=== PATIENT | female | born 1960 | race Hispanic/Latino ===

== ENCOUNTER 2016-11-02 10:58 | Outpatient (CLI) | payer BC ==
--- NOTE | 2016-11-02 14:03 | RAD ---
CERVICAL SPINE HISTORY: Neck pain. Muscle spasm. TECHNIQUE: Five views obtained. FINDINGS: There are moderate degenerative changes in the mid and lower cervical spine, with loss of disk heigh t noted at C5-C6 and C6-C7. Prominent osteophytes are seen at C5-C6 and C6-C7, and posterior spondy litic changes are also noted at these levels. There is straightening of the lordotic curvature. Al ignment appears maintained. IMPRESSION: Moderate degenerative changes at C5-C6 and C6-C7 noted. There is foraminal encroachment at these le vels due to uncinate hypertrophy, as seen on the oblique views. POS: MARY
== END 2016-11-02 10:59 | disposition home or self-care (01) ==
LOC: NAV RAD 10:58
PROVIDERS: ATTEND Internal Medicine
DX: M62.830 Muscle spasm of back (principal); M47.812 Spondylosis without myelopathy or radiculopathy, cervical region
CPT/HCPCS: 72050

== ENCOUNTER 2016-11-20 09:01 | Outpatient (CLI) | payer BC ==
[2016-11-20 12:27] LABS: Blood, Urine Negative (Negative); Clarity Cloudy (Clear); Glucose, Urine (Dipstick) Negative (Negative); Leukocyte Negative (Negative); Nitrite Negative (Negative); Protein, Urine (Dipstick) 30 mg/dL (Neg-Trace); pH, Urine 5.5 (5.0-9.0)
[2016-11-20 12:44] LABS: ALT (SGPT) 50 U/L (8-55); AST (SGOT) 32 U/L (5-34); Albumin 4.3 g/dL (3.5-5.0); Alkaline Phosphatase 116 U/L (40-150); Anion Gap 17 mmol/L (10-20); BUN (Urea Nitrogen) 12 mg/dL (9.8-20.1); Bilirubin, Total 0.5 mg/dL (0.2-1.2); Calc. Creatinine Clearance 0 mL/min (70-130); Calcium 9.7 mg/dL (7.8-10.44); Carbon Dioxide 20 mmol/L (22-29); Cardiac Risk 4.4 (Less than 4.5); Chloride 109 mmol/L (98-107); Cholesterol 210 mg/dl (< 200 Desired); Estimated GFR-MDRD 62; Globulin 2.9 g/dL (2.4-3.5); Glucose 117 mg/dL (70-105); HDL Cholesterol 48 mg/dL (>60 Neg Risk); LDL Cholesterol, Calculated 122 mg/dL; Potassium 4.3 mmol/L (3.5-5.1); Protein, Total 7.2 g/dL (6.0-8.3); Sodium 142 mmol/L (136-145); Triglycerides 200 mg/dL (Less than 150)
[2016-11-20 12:57] LABS: Bilirubin Negative (Negative); Icto Negative (Negative); Specific Gravity, Urine 1.031 (1.002-1.036)
[2016-11-20 12:58] LABS: Bacteria/HPF Rare-Few HPF (None Seen); Crystals/HPF 3+ AMORPH URATES HPF (Negative); RBC/HPF None Seen HPF (0-3); Squamous Epithelial 0-3 HPF (0-3); WBC/HPF 0-3 HPF (0-3)
[2016-11-20 13:12] LABS: #Basophils 0.1 thou/uL (0.0-0.2); #Eosinphils 0.2 thou/uL (0.0-0.7); #Lymphocytes 2.5 thou/uL (1.20-3.40); #Monocytes 0.5 thou/uL (0.11-0.59); #Neutrophils 6.6 thou/uL (1.40-6.50); %Eosinophils 1.8 % (0.0-10.0); %Lymphocytes 25.1 % (21.0-51.0); %Monocytes 5.4 % (0.0-10.0); %Neutrophils 66.7 % (42.0-75.0); Hemoglobin 14.5 g/dL (12.0-16.0); MDiff Complete? YES; Mean Corpuscular HGB CONC 31.9 g/dL (32.0-36.0); Mean Corpuscular Hemoglobin 24.7 pg (27.0-31.0); Mean Corpuscular Volume 77.5 fl (81.0-99.0); Mean Platelet Volume 8.3 fL (7.4-10.4); Microcytosis SLIGHT = 6-15 cells (100X) (0-5/hpf); PLT Morphology Comment Appears Adequate; Platelet Count 271 thou/uL (130-400); RBC Distribution Width 13.8 % (11.5-14.5); Red Blood Cell (RBC) Count 5.85 mill/uL (4.20-5.40); White Blood Cell (WBC) Count 9.9 thou/uL (4.8-10.8)
== END 2016-11-20 09:02 ==
LOC: NAVSJIPCSP 09:01
PROVIDERS: ATTEND Internal Medicine
DX: E78.5 Hyperlipidemia, unspecified (principal); K21.9 Gastro-esophageal reflux disease without esophagitis; M62.830 Muscle spasm of back; M17.11 Unilateral primary osteoarthritis, right knee
CPT/HCPCS: 36415; 80053; 80061; 81001; 85025

== ENCOUNTER 2017-03-01 11:23 | Outpatient (CLI) | payer BC ==
[2017-03-01 12:42] LABS: Cardiac Risk 4.6 (Less than 4.5); Cholesterol 216 mg/dl (< 200 Desired); Glucose 104 mg/dL (70-105); HDL Cholesterol 47 mg/dL (>60 Neg Risk); LDL Cholesterol, Calculated 134 mg/dL; Triglycerides 177 mg/dL (Less than 150)
== END 2017-03-01 11:24 | disposition home or self-care (01) ==
LOC: NAVSJIPCSP 11:23
PROVIDERS: ATTEND Internal Medicine
DX: E78.5 Hyperlipidemia, unspecified (principal); R73.9 Hyperglycemia, unspecified
CPT/HCPCS: 36415; 80061; 82947

== ENCOUNTER 2022-04-22 00:24 | Emergency (ER) | payer BC ==
[2022-04-22] MEDS ORDERED: Fentanyl 100 MCG/2 ML VIAL ONE ×2 (00:58→02:31)
[2022-04-22] MEDS ORDERED: Sodium Chloride 0.9% 1,000 ML ONE (00:58)
[2022-04-22] MEDS ORDERED: Ondansetron PF 4 MG/2 ML Vial ONE (00:58)
[2022-04-22 01:00] LABS: #Basophils 0.1 thou/uL (0.0-0.2); #Eosinphils 0.1 thou/uL (0.0-0.7); #Lymphocytes 2.3 thou/uL (1.20-3.40); #Monocytes 0.7 thou/uL (0.11-0.59); %Basophils 0.7 % (0.0-1.0); %Eosinophils 0.8 % (0.0-10.0); %Lymphocytes 16.1 % (21.0-51.0); %Monocytes 4.7 % (0.0-10.0); %Neutrophils 77.6 % (42.0-75.0); Hemoglobin 14.5 g/dL (12.0-16.0); Mean Corpuscular HGB CONC 31.7 g/dL (32.0-36.0); Mean Corpuscular Hemoglobin 25.5 pg (27.0-31.0); Mean Corpuscular Volume 80.6 fl (78.0-98.0); Mean Platelet Volume 9.1 fL (7.4-10.4); Platelet Count 263 10x3/uL (130-400); RBC Distribution Width 13.3 % (11.5-14.5); Red Blood Cell (RBC) Count 5.68 mill/uL (4.20-5.40); White Blood Cell (WBC) Count 14.1 10x3/uL (4.8-10.8)
[2022-04-22 01:02] LABS: Bilirubin Negative (Negative); Blood, Urine Negative (Negative); Clarity Clear (Clear); Glucose, Urine (Dipstick) Negative (Negative); Ketone, Urine Negative (Negative); Leukocyte Negative (Negative); Nitrite Negative (Negative); Protein, Urine (Dipstick) Negative (Neg-Trace); Urobilinogen 0.2 mg/dL (Less than 2); pH, Urine 8.5 (5.0-9.0)
[2022-04-22 01:19] LABS: ALT (SGPT) 32 U/L (8-55); AST (SGOT) 22 U/L (5-34); Albumin 4.2 g/dL (3.4-4.8); Alkaline Phosphatase 109 U/L (40-110); Anion Gap 14 mmol/L (10-20); BUN (Urea Nitrogen) 10 mg/dL (9.8-20.1); Bilirubin, Total 0.4 mg/dL (0.2-1.2); Calc. Creatinine Clearance 0 mL/min (70-130); Calcium 9.4 mg/dL (7.8-10.44); Carbon Dioxide 24 mmol/L (23-31); Chloride 104 mmol/L (98-107); Estimated GFR 77; Lipase 17 U/L (8-78); Potassium 4.2 mmol/L (3.5-5.1); Protein, Total 7.2 g/dL (5.8-8.1); Sodium 138 mmol/L (136-145)
[2022-04-22 01:20] LABS: Glucose 175 mg/dL (80-115)
[2022-04-22] MEDS ORDERED: Sodium Chloride 0.9% 100 ML ONE (03:03)
[2022-04-22] MEDS ORDERED: cefTRIAXone\\ROCEPHIN 1 GM VIAL ONE (03:03)
[2022-04-22] MEDS ORDERED: Iopamidol 370 76% 100 ML VIAL ONE (09:00)
== END 2022-04-22 04:00 | disposition short-term general hospital (02) ==
LOC: NAV ERS 00:24
DX: K81.0 Acute cholecystitis (principal); D72.829 Elevated white blood cell count, unspecified
CPT/HCPCS: 71045; 74177; 80053; 81003; 83690; 84484; 85025; 93005; 96365; 96375; 96376; J0696; J2405; J3010; J7050; Q9967

== ENCOUNTER 2023-04-08 13:13 | Outpatient (CLI) | payer BC | END 2023-04-08 13:14 | disposition home or self-care (01) | LOC: NAV RAD 13:13 | PROVIDERS: ATTEND Family Medicine | DX: M75.01 Adhesive capsulitis of right shoulder (principal) ==